=== PATIENT | female | born 1985 | race Caucasian/White ===

== ENCOUNTER → 2016-09-06 | Outpatient (REF) | payer MEDICAID ==
[~2016-09-06] MED LIST: COLA100C3 PO; CYCL10TA PO; HYDR-3713 PO; IBUP600T26 PO; IRON65TA PO; MOTR200T44 PO; PERC5TAB6 PO; PRENTAB55 PO
== END ==
LOC: M LAB REF 16:29
PROVIDERS: ATTEND Physician Assistant
DX: J02.9 Acute pharyngitis, unspecified (principal)

== ENCOUNTER → 2016-10-08 | Outpatient (CLI) | payer MEDICAID, OTHER | LOC: M RAD 16:50 | PROVIDERS: ATTEND Advanced Practice Midwife | DX: Z53.8 Procedure and treatment not carried out for other reasons (principal) ==

== ENCOUNTER → 2016-12-06 | Outpatient (CLI) | payer OTHER ==
[~2016-12-06] MED LIST changes: -COLA100C3 PO; +COLA100C5 PO; +IBUP-1022 PO; -IBUP600T26 PO; +PERC5TAB12 PO; -PERC5TAB6 PO
--- NOTE | 2016-12-06 16:48 | REP ---
Pelvic ultrasound including transabdominal and endovaginal imaging: Prior study dated 04/22/2016 identified a 6 cm unilocular right ovarian cyst. The uterus is anteverted and normal size measuring 8.60 4.7 x 5 point centimeters. The endometrium is not thickened measuring 3.81 meters. The right ovary is normal size measuring 2.9 x 2.7 x 1.6 cm. There is no right ovarian cyst. The previous right ovarian cyst has involuted. The left ovary is normal size measuring 3.0 x 1.5 x 2.5 cm. There is no left ovarian mass or cyst. No free fluid in the pelvis. Impression: Negative pelvic ultrasound. The previous right ovarian cyst has involuted. Signed by Boo Garcia MD 12/06/2016 04:38 P
== END ==
LOC: M RAD 14:56
PROVIDERS: ATTEND Advanced Practice Midwife
DX: R10.30 Lower abdominal pain, unspecified (principal); N85.4 Malposition of uterus

== ENCOUNTER → 2017-04-16 | Outpatient (REF) | payer OTHER | LOC: M SFHCLERA 17:57 | PROVIDERS: ATTEND Physician Assistant | DX: R10.84 Generalized abdominal pain (principal) ==

== ENCOUNTER → 2018-04-03 | Outpatient (REF) | payer OTHER ==
[2018-04-07 14:13] LABS: HPV HYBRID CAPTURE II Negative (Negative)
== END ==
LOC: M LAB REF 17:21
DX: Z12.4 Encounter for screening for malignant neoplasm of cervix (principal)

== ENCOUNTER → 2018-04-23 | Outpatient (REF) | payer OTHER ==
[2018-04-24 14:38] LABS: CHLAMYDIA DNA AMPLIFICATION NEGATIVE (NEGATIVE); GC DNA AMPLIFICATION NEGATIVE (NEGATIVE)
== END ==
LOC: M SFHCLERA 17:30
PROVIDERS: ATTEND Nurse Practitioner Family
DX: R11.10 Vomiting, unspecified (principal)

== ENCOUNTER → 2018-04-30 | Outpatient (REF) | payer OTHER ==
[2018-05-01 12:19] LABS: CHLAMYDIA DNA AMPLIFICATION NEGATIVE (NEGATIVE); GC DNA AMPLIFICATION NEGATIVE (NEGATIVE)
== END ==
LOC: M LAB REF 09:36
PROVIDERS: ATTEND Physician Assistant
DX: N39.0 Urinary tract infection, site not specified (principal)

== ENCOUNTER → 2018-05-13 | Outpatient (REF) | payer OTHER | LOC: M LAB REF 11:44 | PROVIDERS: ATTEND Physician Assistant | DX: R30.0 Dysuria (principal) ==

== ENCOUNTER 2018-05-23 14:03 | Outpatient (RCR) | payer OTHER | END 2018-05-25 | LOC: M PT 14:03 | PROVIDERS: ATTEND Advanced Practice Midwife | DX: N94.10 Unspecified dyspareunia (principal); R68.82 Decreased libido ==

== ENCOUNTER → 2018-06-07 | Outpatient (CLI) | payer OTHER ==
[2018-06-07 15:04] LABS: FREE T4 0.94 NG/DL (0.76-1.46); THYROID STIMULATING HORMONE 0.734 uIU/ML (0.358-3.740)
== END ==
LOC: M LAB 13:48
PROVIDERS: ATTEND Advanced Practice Midwife
DX: R68.82 Decreased libido (principal)

== ENCOUNTER 2018-06-15 14:00 | Outpatient (RCR) | payer OTHER | END 2018-06-22 | LOC: M PT 14:00 | PROVIDERS: ATTEND Advanced Practice Midwife | DX: N94.10 Unspecified dyspareunia (principal); R68.82 Decreased libido ==

== ENCOUNTER → 2018-08-07 | Outpatient (CLI) | payer OTHER ==
[2018-08-07 15:29] LABS: BASO % 0.4 % (0.0-1.0); EOS # 0.1 10^3/uL (0.0-0.50); HEMATOCRIT 34.4 % (36.0-47.0); HEMOGLOBIN 11.7 g/dl (12.0-15.5); LYMPH # 2.1 10^3/uL (1.5-4.5); LYMPH % 21.3 % (24.0-44.0); MEAN CORPUSCULAR HEMOGLOBIN 29.1 pg (27.0-33.0); MEAN CORPUSCULAR VOLUME 85.6 fl (80.0-96.0); MONO # 0.6 10^3/uL (0.0-0.8); MONO % 6.3 % (0.0-5.0); NEUTROPHILS # 6.8 10^3/uL (1.8-7.7); NEUTROPHILS % 70.8 % (36.0-66.0); PLATELET COUNT, AUTOMATED 252 10^3/uL (150-450); RED BLOOD COUNT 4.02 10^6/uL (4.00-5.40); WHITE BLOOD COUNT 9.7 10^3/uL (4.0-10.0)
[2018-08-07 16:49] LABS: HEPATITIS C VIRUS ABY INDEX 0.1 INDEX (<0.8); HIV 1&2 SCREEN CENTAUR NEGATIVE (NEGATIVE); RUBELLA IgG QUALITATIVE IMMUNE (IMMUNE)
[2018-08-07 17:03] LABS: CHLAMYDIA DNA AMPLIFICATION NEGATIVE (NEGATIVE); GC DNA AMPLIFICATION NEGATIVE (NEGATIVE)
== END ==
LOC: M LAB 14:44
PROVIDERS: ATTEND Advanced Practice Midwife
DX: Z3A.08 8 weeks gestation of pregnancy (principal)

== ENCOUNTER → 2018-08-30 | Outpatient (REF) | payer OTHER | LOC: M LAB REF 12:30 | PROVIDERS: ATTEND Physician Assistant | DX: R30.0 Dysuria (principal) ==

== ENCOUNTER → 2018-10-12 | Outpatient (CLI) | payer OTHER ==
--- NOTE | 2018-10-12 15:57 | REP ---
Obstetric ultrasound for anatomy: The there is a single intrauterine gestation in a vertex presentation. There is movement and cardiac activity. The heart rate is 144 beats per minute. The placenta is posterior. There is no placenta previa or abruptio. The placenta is grade 1 maturity. The amniotic fluid volume subjectively is normal. The cervix measures 3.8 cm length. Gestational age by today's ultrasound is 19 weeks 3 days/ISIS 03/05/2019. Gestational age by LMP is 18-week 6 days/ISIS 03/09/2019. weight is 303 grams/0 pounds, 10 ounces. This is the 75th percentile for 18 weeks 6 days. The following anatomic structures are identified and are unremarkable: The cranium, choroid plexus, cavum septum pellucidum, upper lip, diaphragm, stomach, cord insertion, three-vessel cord, kidneys, bladder, spine and upper lower extremities. Suboptimally demonstrated because of position are the facial profile, lungs, four-chamber view of the heart and cardiac right and left ventricular outflow tracts. A followup study dedicated to these structures might be considered. Otherwise, there are no anomalies. Electronically Signed by Boo Garcia MD 10/12/2018 03:48 P
== END ==
LOC: M RAD 14:30
PROVIDERS: ATTEND Obstetrics & Gynecology
DX: Z34.82 Encounter for supervision of other normal pregnancy, second trimester (principal); Z3A.19 19 weeks gestation of pregnancy

== ENCOUNTER → 2018-11-03 | Outpatient (CLI) | payer OTHER ==
--- NOTE | 2018-11-04 06:21 | REP ---
Obstetric sonography: History: Supervision of for anatomy. Follow-up, face, lungs, four-chamber heart and outflow tract views. Findings: Scanning through the gravid uterus demonstrates a viable single intrauterine gestation in a cephalic lie. motion is observed and heart rate is recorded at 156 beats per minute. A posterior grade 1 placenta is seen without evidence of previa or abruption. Amniotic fluid is subjectively normal. Closed cervical length measured transabdominally is 4.1 cm. No extrauterine abnormality is observed. There has been appropriate interval growth. No anomaly is seen. The following anatomic structures are identified and felt to be sonographically unremarkable: cranium, choroid plexus, cavum, cerebellum and posterior fossa, face and profile, lungs, four-chamber heart with left and right ventricular outflow tract views, diaphragm, left-sided stomach, abdominal wall cord insertion, three-vessel umbilical cord, kidneys and bladder, spine, upper and lower extremities. Biometry chart: BPD 4.9 cm 20 weeks 6 days Head circumference 20.3 cm 22 weeks 3 days Abdominal circumference 17.8 cm 22 weeks 5 days Femur length 4.3 cm 24 weeks 0 days Humeral length 4.0 cm 24 weeks 2 days HC/AC ratio normal 1.14. Cephalic index 0.64 (0.70-0.86). Estimated weight 562 grams, 1 pound 3 ounces, 83rd percentile for 22 week 0 days. Impression: Viable single intrauterine gestation at 22 weeks 6 days by today's composite sonographic criteria. Expected gestational age estimate based on prior sonography is 22 weeks 4 days. ISIS by prior sonography March 05, 2019. anatomic survey is felt to be complete. Electronically Signed by José Miguel Moon MD 11/04/2018 11:41 A
== END ==
LOC: M RAD 13:12
PROVIDERS: ATTEND Advanced Practice Midwife
DX: Z34.82 Encounter for supervision of other normal pregnancy, second trimester (principal); Z3A.22 22 weeks gestation of pregnancy

== ENCOUNTER → 2018-11-16 | Outpatient (REF) | payer OTHER | LOC: M LAB REF 16:57 | PROVIDERS: ATTEND Advanced Practice Midwife | DX: Z34.82 Encounter for supervision of other normal pregnancy, second trimester (principal) ==

== ENCOUNTER → 2018-12-01 | Outpatient (CLI) | payer OTHER ==
[2018-12-01 10:23] LABS: HEMATOCRIT 29.7 % (36.0-47.0); MEAN CORPUSCULAR HEMOGLOBIN 29.8 pg (27.0-33.0); MEAN CORPUSCULAR HGB CONC 33.7 g/dl (32.0-36.5); MEAN CORPUSCULAR VOLUME 88.4 fl (80.0-96.0); PLATELET COUNT, AUTOMATED 177 10^3/uL (150-450); RED BLOOD COUNT 3.36 10^6/uL (4.00-5.40); WHITE BLOOD COUNT 10.3 10^3/uL (4.0-10.0)
== END ==
LOC: M LAB 08:19
PROVIDERS: ATTEND Advanced Practice Midwife
DX: Z34.82 Encounter for supervision of other normal pregnancy, second trimester (principal)

== ENCOUNTER 2019-01-10 09:14 | Outpatient (CLI) | payer OTHER ==
[~2019-01-10] VITALS: Ht 175.3 cm; Wt 92.0 kg
[2019-01-10] MEDS ORDERED: LACTATED RINGER'S 1000 ML IV ONE (11:00)
[2019-01-10 11:31] LABS: HEMOGLOBIN 11.1 g/dl (12.0-15.5); MEAN CORPUSCULAR HEMOGLOBIN 30.1 pg (27.0-33.0); MEAN CORPUSCULAR HGB CONC 33.6 g/dl (32.0-36.5); MEAN CORPUSCULAR VOLUME 89.4 fl (80.0-96.0); PLATELET COUNT, AUTOMATED 143 10^3/uL (150-450); RED BLOOD COUNT 3.69 10^6/uL (4.00-5.40); WHITE BLOOD COUNT 10.6 10^3/uL (4.0-10.0)
[2019-01-10] MEDS ORDERED: LR 1,000 ML IV SCH (12:00)
[2019-01-10 12:10] LABS: ALBUMIN 2.8 GM/DL (3.2-5.2); ALT/SGPT 11 U/L (12-78); AMYLASE 36 U/L (25-115); BILIRUBIN,DIRECT 0.2 MG/DL (0.0-0.2); BILIRUBIN,TOTAL 0.4 MG/DL (0.2-1.0); BLOOD UREA NITROGEN 5 MG/DL (7-18); CALCIUM LEVEL 8.8 MG/DL (8.5-10.1); CARBON DIOXIDE LEVEL 22 MEQ/L (21-32); CHLORIDE LEVEL 107 MEQ/L (98-107); CREATININE FOR GFR 0.56 MG/DL (0.55-1.30); GLOMERULAR FILTRATION RATE > 60.0 (>60); GLUCOSE, FASTING 85 MG/DL (70-100); LIPASE 84 U/L (73-393); POTASSIUM SERUM 3.9 MEQ/L (3.5-5.1); SODIUM LEVEL 138 MEQ/L (136-145); TOTAL PROTEIN 6.8 GM/DL (6.4-8.2)
--- NOTE | 2019-01-10 12:20 | IPN ---
DATE: 01/10/2019 Karley is a 33-year-old, 4, para 2-0-1-2, at 32-1/7 weeks gestation, expected date of confinement (EDC) of 03/06/2019 based on last menstrual period and confirmed by first trimester ultrasound. She presents to labor and delivery today due to abdominal pain in the upper quadrants. The pain initially started last evening around 1800 and progressively became more uncomfortable over the night. She was able to sleep for a couple hours and arose this morning with increase in abdominal pain. She reports that it does not feel like contractions. She denies vaginal bleeding or leakage of fluid. The fetus has been active. She also reports that she had back pain throughout the day yesterday, but that went away prior to her abdominal pain starting. She had last eaten last evening prior to the pain starting, [employer] barbecue fried chicken sandwich. She has been able to keep clear fluids down. She does deny vomiting and diarrhea. Her care was initiated at [facility] in the first trimester with her course complicated by a prior section times two at term. OBSTETRICAL HISTORY: February 2004: 40 weeks gestation, 8 pounds 12 ounces male, following a section. 2012: Spontaneous miscarriage. November 2015: 38 weeks gestation, 8 pounds 5 ounces male, following an emergent section for spontaneous rupture of membranes and a presentation with bradycardia, question of a possible placental abruption. Pathology was normal. OBSTETRIC LABS: A negative. Antibody screen negative. Pap normal. Rubella immune. VDRL nonreactive. Hepatitis B surface antigen negative. HIV negative. Hepatitis C antibody nonreactive. Gonorrhea and chlamydia negative. She did decline genetic serum screening labs. Gestational diabetic screening normal at 118. Her GBS is unknown at this time. PAST MEDICAL HISTORY: Childhood varicella. SURGERIES: section times two. FAMILY HISTORY: Diabetes and heart disease. SOCIAL HISTORY: The patient is single, however, there is a father of the baby involved. She does present alone for evaluation today. She is a nonsmoker. She denies alcohol and drug use. She denies history of sexually transmitted infections. She denies history of abuse - physical, sexual and emotional. ALLERGIES: No known drug allergies. CURRENT MEDICATIONS: - omeprazole - ferrous gluconate - stool softener - vitamin OBJECTIVE: Temperature 97, pulse 96, respirations 22, blood pressure (BP) is 128/59. She does appear moderately uncomfortable. The heart rate is 150, moderate variability, positive accelerations, no decelerations. Contractions are every 2-5 minutes. They are mild, approximately 30-40 seconds long. Sterile Vaginal Exam: She is closed, thinning, ballottable. Her abdomen is tender to palpation in the upper quadrants. Her uterus is nontender to palpation. ASSESSMENT: Intrauterine at 32-1/7 weeks. heart rate is category one. Upper abdominal pain, rule out cholelithiasis, pancreatitis. PLAN: Per consult with Dr. Sherri Park, IV fluids. Labs to include CBC, CMP, amylase, lipase and liver profile. Gallbladder ultrasound stat. Nothing by mouth (n.p.o.) diet at this time. Will continue to observe and await laboratory results and sono results.
--- NOTE | 2019-01-10 12:51 | REP ---
RIGHT UPPER QUADRANT ULTRASOUND: Real-time sonographic evaluation of the right upper quadrant performed. Gallstones are seen in the gallbladder. There is no gallbladder wall thickening or free fluid. There is no intrahepatic or extrahepatic biliary dilatation, common bile duct measuring 3 mm. Liver demonstrates no gross abnormality. Pancreas could not be seen due to overlying bowel gas. Right kidney demonstrates mild hydronephrosis with normal size 12.3 cm in length. The patient is and heart rate is noted to be 160 beats per minute. Study is limited due to patient body habitus and inability to suspend respirations. IMPRESSION: Gallstones in the gallbladder without evidence of gallbladder wall thickening, free fluid or biliary dilatation. Mild right hydronephrosis. Electronically Signed by Boo Irene MD 01/11/2019 04:43 P
[2019-01-10] MEDS ORDERED: PROMETHAZINE INJ 25 MG/ML VIAL (J2550) IV ONE (13:30)
[2019-01-10] MEDS ORDERED: BUTORPHANOL 2 MG/ML INJ (J0595) IV ONE (13:30)
== END 2019-01-10 16:30 | disposition home or self-care (01) ==
LOC: M LDO 09:14
PROVIDERS: ATTEND Advanced Practice Midwife
DX: O99.89 Other specified diseases and conditions complicating pregnancy, childbirth and the puerperium (principal); Z3A.32 32 weeks gestation of pregnancy; R10.10 Upper abdominal pain, unspecified; N13.30 Unspecified hydronephrosis; K80.20 Calculus of gallbladder without cholecystitis without obstruction
CPT/HCPCS: 59025; 76705; 80053; 82150; 82248; 83690; 85027; 96374; 96375; J0595

== ENCOUNTER → 2019-01-15 | Outpatient (CLI) | payer OTHER ==
[2019-01-15 16:06] LABS: ALBUMIN 2.7 GM/DL (3.2-5.2); ALT/SGPT 17 U/L (12-78); AMYLASE 36 U/L (25-115); BILIRUBIN,TOTAL 0.5 MG/DL (0.2-1.0); BLOOD UREA NITROGEN 7 MG/DL (7-18); CALCIUM LEVEL 8.3 MG/DL (8.5-10.1); CARBON DIOXIDE LEVEL 22 MEQ/L (21-32); CHLORIDE LEVEL 106 MEQ/L (98-107); CREATININE FOR GFR 0.74 MG/DL (0.55-1.30); GLOMERULAR FILTRATION RATE > 60.0 (>60); GLUCOSE, FASTING 90 MG/DL (70-100); LIPASE 107 U/L (73-393); POTASSIUM SERUM 3.7 MEQ/L (3.5-5.1); SODIUM LEVEL 138 MEQ/L (136-145); TOTAL PROTEIN 6.5 GM/DL (6.4-8.2)
== END ==
LOC: M LAB 15:12
PROVIDERS: ATTEND Advanced Practice Midwife
DX: K80.80 Other cholelithiasis without obstruction (principal)

== ENCOUNTER → 2019-02-09 | Outpatient (REF) | payer OTHER | LOC: M LAB REF 16:57 | PROVIDERS: ATTEND Advanced Practice Midwife | DX: Z36.85 Encounter for antenatal screening for Streptococcus B (principal); O99.613 Diseases of the digestive system complicating pregnancy, third trimester ==

== ENCOUNTER → 2019-02-16 | Outpatient (CLI) | payer OTHER ==
[~2019-02-16] MED LIST changes: +ACET1TAB55 PO; +OMEP-218 PO
== END ==
LOC: M LAB 11:52
PROVIDERS: ATTEND Advanced Practice Midwife
DX: O99.613 Diseases of the digestive system complicating pregnancy, third trimester (principal); Z3A.00 Weeks of gestation of pregnancy not specified

== ENCOUNTER 2019-02-22 14:18 | Outpatient (CLI) | payer OTHER ==
[~2019-02-22] VITALS: Ht 175.3 cm; Wt 96.7 kg
[~2019-02-22 14:18] MED LIST changes: -ACET1TAB55 PO; -OMEP-218 PO
[2019-02-22 14:34] VITALS: BP 106/59
[2019-02-22] MEDS ORDERED: ACET1TAB55 PO (14:39)
[2019-02-22] MEDS ORDERED: OMEP-218 PO (14:39)
[2019-02-22 15:44] VITALS: BP 112/59
== END 2019-02-22 15:57 | disposition home or self-care (01) ==
LOC: M LDO 14:18
PROVIDERS: ATTEND Obstetrics & Gynecology
DX: O47.1 False labor at or after 37 completed weeks of gestation (principal); Z3A.38 38 weeks gestation of pregnancy

== ENCOUNTER 2019-02-27 02:41 | Inpatient (IN) | payer OTHER ==
[2019-02-27] VITALS (9 sets, daily range): BP systolic 111–122; BP diastolic 55–80
[~2019-02-27] VITALS: Ht 175.3 cm; Wt 97.2 kg
[~2019-02-27 02:41] MED LIST changes: +ACET1TAB55 PO; +OMEP-218 PO
[2019-02-27] MEDS ORDERED: LR 1,000 ML IV ONE ×2 (02:45→03:30)
[2019-02-27 03:19] LABS: HEMATOCRIT 33.4 % (36.0-47.0); HEMOGLOBIN 11.1 g/dl (12.0-15.5); MEAN CORPUSCULAR HEMOGLOBIN 29.2 pg (27.0-33.0); MEAN CORPUSCULAR HGB CONC 33.2 g/dl (32.0-36.5); MEAN CORPUSCULAR VOLUME 87.9 fl (80.0-96.0); PLATELET COUNT, AUTOMATED 148 10^3/uL (150-450); WHITE BLOOD COUNT 9.9 10^3/uL (4.0-10.0)
[2019-02-27] MEDS ORDERED: ceFAZolin SOD 2 GM in IV 1 EA IV ONE (03:30)
[2019-02-27] MEDS ORDERED: BICITRA 30ML SOLN UDC PO ONE (03:30)
[2019-02-27] MEDS ORDERED: LR 1,000 ML IV SCH (03:30)
[2019-02-27] MEDS ORDERED: BUTORPHANOL 2 MG/ML INJ (J0595) IV ONE (04:00)
[2019-02-27] MEDS ORDERED: PROMETHAZINE INJ 25 MG/ML VIAL (J2550) IV ONE (04:00)
--- NOTE | 2019-02-27 04:58 | IPNPDOC ---
Obstetrical Progress Note Date of Service Feb 27, 2019 Subjective Patient reports she started having contractions at 11-12 last night and they have gotten closer together and more painful. She reports that her contractions are an 8-9/10 pain. Objective Vital Signs Date Time Temp Pulse Resp B/P (MAP) Pulse Ox O2 Delivery O2 Flow Rate FiO2 02/27/19 04:37 171 18 116/70 (85) 02/27/19 03:14 97.9 Assessment Heart Rate (FHR): 130 Variability: Moderate Accelerations: Positive Decelerations: None Heart Rate Tracing: Category I Tocometer Contractions: Yes Frequency: regular, other (2-6 minutes) Sterile Vaginal Examination Dilation: Fingertip Effacement (%): 50% Cervical Consistency: Soft Cervical Position: Anterior Assessment and Plan EGA at Admission: 39 Status: Reassuring Anticipate: Section Additional Comments Patient is flushed and breathing through contractions. Dr. Savage notified. May give IV pain medication until he arrives to do her repeat section as patient desires something for pain at this time. CASEY PRIEST CNM Feb 27, 2019 04:58
[2019-02-27] MEDS ORDERED: METOCLOPRAMIDE INJ 10MG/2ML VIAL (J2765) IV PRN (05:18)
[2019-02-27] MEDS ORDERED: ONDANSETRON 4MG/2ML VIAL (J2405) IV PRN ×3 (05:18→07:00)
[2019-02-27] MEDS ORDERED: diphenhydrAMINE INJ 50MG/ML VIAL (J1200) IV PRN (05:18)
[2019-02-27] MEDS ORDERED: NALBUPHINE HCL 10 MG/ML AMP (J2300) IV PRN ×2 (05:18→07:00)
[2019-02-27] MEDS ORDERED: NALOXONE INJ 0.4 MG/1 ML VIAL (J2310) IV PRN ×2 (05:18)
[2019-02-27] MEDS ORDERED: MORPHINE PRES-FREE INJ 10 MG/10 ML VIAL (J2274) As Ordered ONE (05:28)
[2019-02-27] MEDS ORDERED: OXYTOCIN INJ 10 UNITS/ML VIAL (J2590) As Ordered ONE (05:28)
[2019-02-27] MEDS ORDERED: PHENYLephrine HCL 500 MCG/5 ML (100MCG/ML) SYRINGE (J2370) As Ordered ONE (05:30)
[2019-02-27] MEDS ORDERED: MIDAZOLAM INJ 2 MG/2 ML VIAL (J2250) As Ordered ONE (05:49)
[2019-02-27] MEDS ORDERED: AZITHROMYCIN INJ 500 MG, VIAL MATE ADAPTER 1 EACH in D5W 250 ML IV ONE ×6 (06:15)
[2019-02-27] MEDS ORDERED: OXYTOCIN DRIP 30 UNITS in IV 1 EA IV SCH (06:31)
[2019-02-27] MEDS ORDERED: RHOGAM 300 MCG (1500 IU) INJ (J2790) IM SCH (06:45)
[2019-02-27] MEDS ORDERED: PERCOCET 5MG/325MG TAB PO PRN (06:45)
[2019-02-27] MEDS ORDERED: PROMETHAZINE 25 MG TAB PO PRN (06:45)
[2019-02-27] MEDS ORDERED: MEASLES,MUMPS,RUBELLA VACCINE INJ (MMR-II) (90707) SC SCH (06:45)
[2019-02-27] MEDS ORDERED: ACETAMINOPHEN 500 MG TAB PO PRN (06:45)
[2019-02-27] MEDS ORDERED: KETOROLAC 30 MG/ML VIAL (J1885) IV PRN (07:00)
[2019-02-27] MEDS ORDERED: MEPERIDINE INJ 25 MG/ML VIAL (J2175) IV PRN (07:00)
[2019-02-27] MEDS ORDERED: fentaNYL 100 MCG/2 ML INJECTION (J3010) IV PRN (07:00)
[2019-02-27] MEDS ORDERED: KETOROLAC 30 MG/ML VIAL (J1885) As Ordered ONE (07:06)
[2019-02-27] MEDS: KETOROLAC 30 MG/ML VIAL (J1885) IV SCH ×3 (07:09→18:02)
[2019-02-27] MEDS ORDERED: OXYTOCIN 30 UNITS IN 0.9% NaCl 500ML IV BAG (J2590) As Ordered ONE (07:16)
[2019-02-27] MEDS: LR 1,000 ML IV SCH ×3 (08:05→22:31)
[2019-02-27] MEDS: DOCUSATE SODIUM 100 MG CAP PO SCH ×2 (09:04→22:16)
[2019-02-27] MEDS: PRENATAL VITAMINS CHEWABLE TABLET PO SCH (09:04)
[2019-02-28 02:30] VITALS: BP 134/72
[2019-02-28] MEDS: IBUPROFEN 800 MG TAB PO SCH ×2 (03:20→10:56)
[2019-02-28] MEDS: NORCO, ANEXSIA 5/325MG TABLET (HYDROcodone/ACETAMINOPHEN) PO PRN ×2 (06:21→11:47)
[2019-02-28 07:10] VITALS: BP 104/61
[2019-02-28] MEDS ORDERED: IBUP80TA PO (07:31)
[2019-02-28] MEDS ORDERED: HYDR-4571 PO (07:31)
[2019-02-28 07:47] LABS: HEMATOCRIT 31.6 % (36.0-47.0); HEMOGLOBIN 10.3 g/dl (12.0-15.5); MEAN CORPUSCULAR HEMOGLOBIN 29.3 pg (27.0-33.0); MEAN CORPUSCULAR HGB CONC 32.6 g/dl (32.0-36.5); PLATELET COUNT, AUTOMATED 130 10^3/uL (150-450); RED BLOOD COUNT 3.51 10^6/uL (4.00-5.40); WHITE BLOOD COUNT 9.8 10^3/uL (4.0-10.0)
[2019-02-28] MEDS: PRENATAL VITAMINS CHEWABLE TABLET PO SCH (09:00)
[2019-02-28] MEDS: DOCUSATE SODIUM 100 MG CAP PO SCH (09:00)
[2019-02-28 10:00] VITALS: BP 115/66
--- NOTE | 2019-02-28 12:51 | DSES ---
DATE OF ADMISSION: 02/27/2019 DATE OF DISCHARGE: 02/28/19 DISCHARGE DIAGNOSIS: Repeat section, 39+ weeks active labor. SURGEON: Myron Savage DO AIRCRAFT MAINTENANCE SUPERVISOR: Mallory Mejía, certified nurse labor supervisor HISTORY: Karley is a 33-year-old 4, para 3-0-1-3 now, who was admitted to labor and delivery and underwent a planned repeat section due to active labor. Her surgery was uncomplicated. She had a 700 mL estimated blood loss. Delivered a female infant weighing 8 pounds 15 ounces, 4050 grams, scores 8 and 8. She reports that she has been out of bed for self care, lola care, and infant care. She is tolerating by mouth fluids and a regular diet. She is voiding without difficulty. Her pain has been well controlled with by mouth Vicodin and ibuprofen. She does deny passing flatus at this time. She does insist on early discharge to home. Her has been discharged. OBJECTIVE: Temperature 98.1, pulse 95, respirations 18, blood pressure (BP) is 115/66, 98% on room air for her oxygen (O2). She is alert and oriented times three. She does not appear uncomfortable. Her preoperative complete blood count (CBC) with a hemoglobin of 11.1, hematocrit 33.4, and platelet 148. Postoperative CBC: Hemoglobin 10.3, hematocrit 31.6, and platelet 130. Her breasts are soft and nontender. Her incision has the dressing dry and intact. There is no new drainage noted. Her perineum is intact. Lochia rubra scant. Bilateral lower extremities with +1 pitting edema. PLAN: Discharge the patient home. She is to followup at [facility] for a 2-week incision check and an 8-week appointment. Pain medications have been E-prescribed by Dr. Myron Savage to her pharmacy for Vicodin as needed. I did review discharge instructions that include breast care, incision care, lola care, pelvic rest, activity and lifting restrictions, access to care, and other danger signs to report. I did review risks, benefits, and alternatives to early discharge. The patient still requests early discharge to home. JOSE
== END 2019-02-28 13:55 | disposition home or self-care (01) | DRG 540 ==
LOC: M LDI 02:41 → M OBS 08:57
PROVIDERS: ADMIT Obstetrics & Gynecology; ATTEND Obstetrics & Gynecology
PROC: 10D00Z1 Extraction of Products of Conception, Low, Open Approach (ICD-10-PCS; principal; 2019-02-27 09:30)
DX: O34.211 Maternal care for low transverse scar from previous cesarean delivery (principal); Z3A.39 39 weeks gestation of pregnancy; O75.82 Onset (spontaneous) of labor after 37 completed weeks of gestation but before 39 completed weeks gestation, with delivery by (planned) cesarean section; Z37.0 Single live birth

== ENCOUNTER → 2019-03-07 | Outpatient (REF) | payer OTHER ==
[~2019-03-07] MED LIST changes: +HYDR-4571 PO; +IBUP80TA PO
== END ==
LOC: M LAB REF 13:44
PROVIDERS: ATTEND Advanced Practice Midwife
DX: R30.0 Dysuria (principal)

== ENCOUNTER 2019-03-17 11:06 | Emergency (ER) | payer OTHER ==
[~2019-03-17] VITALS: Ht 175.3 cm; Wt 86.4 kg
[2019-03-17] MEDS ORDERED: ONDANSETRON 4MG/2ML VIAL (J2405) IV ONE (11:30)
[2019-03-17] MEDS ORDERED: NS 1,000 ML IV ONE (11:30)
[2019-03-17] MEDS ORDERED: KETOROLAC 30 MG/ML VIAL (J1885) IV ONE (11:30)
[2019-03-17 11:46] LABS: BASO # 0.1 10^3/uL (0.0-0.2); BASO % 0.8 % (0.0-1.0); EOS # 0.1 10^3/uL (0.0-0.5); EOS % 1.9 % (0.0-3.0); HEMATOCRIT 44.3 % (36.0-47.0); HEMOGLOBIN 14.5 g/dl (12.0-15.5); LYMPH # 1.5 10^3/uL (1.5-5.0); LYMPH % 25.8 % (24.0-44.0); MEAN CORPUSCULAR HEMOGLOBIN 29.1 pg (27.0-33.0); MEAN CORPUSCULAR HGB CONC 32.7 g/dl (32.0-36.5); MEAN CORPUSCULAR VOLUME 88.8 fl (80.0-96.0); MONO # 0.4 10^3/uL (0.0-0.8); MONO % 7.4 % (0.0-5.0); NEUTROPHILS # 3.8 10^3/uL (1.5-8.5); NEUTROPHILS % 63.9 % (36.0-66.0); PLATELET COUNT, AUTOMATED 248 10^3/uL (150-450); RED BLOOD COUNT 4.99 10^6/uL (4.00-5.40); WHITE BLOOD COUNT 5.9 10^3/uL (4.0-10.0)
[2019-03-17 12:16] LABS: ALBUMIN 3.8 GM/DL (3.2-5.2); ALT/SGPT 93 U/L (12-78); BILIRUBIN,DIRECT 0.4 MG/DL (0.0-0.2); BILIRUBIN,TOTAL 0.8 MG/DL (0.2-1.0); BLOOD UREA NITROGEN 9 MG/DL (7-18); CALCIUM LEVEL 9.2 MG/DL (8.5-10.1); CARBON DIOXIDE LEVEL 30 MEQ/L (21-32); CHLORIDE LEVEL 106 MEQ/L (98-107); CK-MB VALUE MASS < 1.0 NG/ML (<3.6); CPK CREATINE PHOSPHOKINASE 96 U/L (26-192); CREATININE FOR GFR 0.85 MG/DL (0.55-1.30); GLOMERULAR FILTRATION RATE > 60.0 (>60); GLUCOSE, FASTING 81 MG/DL (70-100); LIPASE 163 U/L (73-393); MB/CK RELATIVE INDEX 1.04 (< OR =4); POTASSIUM SERUM 3.7 MEQ/L (3.5-5.1); SODIUM LEVEL 141 MEQ/L (136-145); TOTAL PROTEIN 8.5 GM/DL (6.4-8.2); TROPONIN I < 0.02 NG/ML (< 0.10)
--- NOTE | 2019-03-17 12:33 | REP ---
REASON: Abdominal pain. COMPARISON: 05/06/2013 FINDINGS: The superior mediastinal structures are midline. The cardiac silhouette is unremarkable in size, shape, and position. The diaphragmatic surfaces of the lungs are regular, and the costophrenic angles are clear. The pulmonary welch are clear. The imaged osseous structures are intact. IMPRESSION: There is no acute cardiopulmonary disease. No change from the prior exam. Electronically Signed by Connor Hammonds DO 03/17/2019 01:28 P
[2019-03-17] MEDS ORDERED: METAL LOCK LOOP XX ONE (12:55)
--- NOTE | 2019-03-17 13:11 | ECGEPIP ---
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
--- NOTE | 2019-03-17 13:35 | REP ---
HISTORY: Right upper quadrant pain. History of cholelithiasis. COMPARISON: 01/10/2019 Note is again made of cholelithiasis, status quo. There is no change in the gallbladder wall. The common bile duct is not dilated and is unchanged. It measures 3 mm. There is no abnormality seen involving the liver, pancreas, or right kidney. IMPRESSION: No change from the prior exam. There is cholelithiasis. Electronically Signed by Connor Hammonds DO 03/17/2019 02:47 P
[2019-03-17 16:46] VITALS: BP 122/71
--- NOTE | 2019-03-17 17:20 | CR ---
DATE OF CONSULTATION: 03/17/2019 REASON FOR CONSULTATION: Cholelithiasis and abdominal pain. HISTORY OF PRESENT ILLNESS: The patient reports that about 3 years ago during a previous , she had some abdominal discomfort and underwent evaluation with an ultrasound, which confirmed cholelithiasis. Once her had completed, she had no further issues with gallstone problems and did not have any further treatment. The patient was recently again. She had an episode of left-sided abdominal pain, for which she underwent a gallbladder ultrasound, which confirmed cholelithiasis. This was in December. The patient continued through her and delivered by section on February 27. The patient reports that last evening, March 16, at approximately 10 p.m. she noted the onset of severe right upper quadrant pain, which radiated around to her back. She developed some nausea and vomiting. The patient reports that she was able to go to sleep and awakened this morning, had some apple juice and half a Pop Tart, and noted recurrence of the pain again. The pain persisted, and she presented to the emergency department at approximately 11 o'clock this morning for evaluation. The patient denies any history of hepatitis, pancreatitis, or yellow jaundice. She has not noticed any darkening of her urine. She is currently feeling better since coming to the emergency department. Her only pain medication was a dose of Toradol at approximately 11:43 this morning. She was evaluated with a gallbladder ultrasound and some lab work. Her gallstones were again confirmed. I was asked to evaluate the patient regarding treatment. ALLERGIES. The patient reports no known drug allergies. MEDICATIONS: The patient reports she is on no routine scheduled medications. SURGICAL HISTORY: Significant for three sections, most recently on February 27. MEDICAL HISTORY: Negative. SOCIAL HISTORY: The patient has three children, the most recent born 2 weeks ago. She is bottle-feeding the baby. FAMILY HISTORY: Noncontributory. REVIEW OF SYSTEMS: Reveals no history of heart, lung, or endocrine issues. She has not had any recent pains until last night. She has no history of deep vein thrombosis (DVT) or pulmonary embolus. There are no bone or joint issues. She denies any urinary symptoms. She had some nausea and vomiting with her pain today but no diarrhea. PHYSICAL EXAMINATION: Reveals a pleasant young woman, lying quietly on the emergency room (ER) stretcher. She is alert, oriented, and cooperative. Skin is warm and dry. Sclerae are anicteric. Mucous membranes are moist. Neck is supple without mass. Heart exam reveals a regular rate and rhythm. The lungs are clear to auscultation bilaterally. The abdomen is flat. She has a healed low transverse incision, consistent with a section. She has bowel sounds present in all four quadrants. She has no tympany to percussion and no tenderness to percussion. The abdomen is soft throughout without appreciable tenderness. Lower extremities are without edema, and she has palpable radial and pedal pulses. Her laboratory studies include a CBC, showing a white count of 6, hemoglobin of 14, hematocrit of 44, and platelet count of 248,000. Differential count shows 64% neutrophils, 26% lymphocytes, and 7% monocytes. Her chemistry profile shows normal electrolytes, BUN, creatinine, and glucose. She has very slight elevations of her direct bilirubin is 0.4, her AST at 130, her ALT at 93, and her alkaline phosphatase at 187. Total bilirubin was normal at 0.8. Lipase is normal at 163. Urinalysis shows no significant evidence for a urinary tract infection. She had a chest x-ray that showed no evidence of cardiopulmonary disease. The gallbladder ultrasound was interpreted as showing cholelithiasis with no significant change from December 2018. IMPRESSION: The patient has had some right upper quadrant pain, which seems now to have resolved. She has known gallstones, which have been present for perhaps 3 years plus. This may represent a simple attack of biliary colic, although with her very slight elevations of her liver functions, it could be that she passed a common bile duct stone. She has no pain currently, but it is uncertain if she could still have a persistent common bile duct stone. PLAN: I discussed with the patient that I do believe her pain is from her gallstones, but it is unclear if this represented an attack of biliary colic or could be from a common bile duct stone being passed. At this point, she is feeling comfortable and does not appear to need emergent surgery for this issue. I have recommended that we discharge her home. I advised her to avoid particularly greasy foods. I did elder counselor her that she may have a recurrence of her pain, and, if this is severe enough, she should return to the emergency department and we will address this as needed. If she feels well, however, and is able to tolerate a diet, she should follow up with me in my office, and we will schedule an elective cholecystectomy at a scheduled time in the future. The patient appears to understand this plan and these instructions, and I would recommend that she be discharged home.
== END 2019-03-17 16:51 | disposition home or self-care (01) ==
LOC: M ED 11:06
DX: K80.70 Calculus of gallbladder and bile duct without cholecystitis without obstruction (principal); R94.5 Abnormal results of liver function studies; I49.9 Cardiac arrhythmia, unspecified; Z87.19 Personal history of other diseases of the digestive system; Z83.79 Family history of other diseases of the digestive system
CPT/HCPCS: 71046; 76705; 80048; 80076; 81001; 82550; 82553; 83690; 84702; 85025; 87086; 93005; 96374; 99284; J1885; J2405

== ENCOUNTER 2019-03-31 00:03 | Emergency (ER) | payer OTHER ==
[~2019-03-31] VITALS: Ht 175.3 cm; Wt 86.2 kg
[2019-03-31] MEDS ORDERED: MORPHINE 4 MG/ML 1ML VIAL/SYRINGE (J2270) IV ONE (00:30)
[2019-03-31] MEDS ORDERED: NS 1,000 ML IV ONE (00:30)
[2019-03-31] MEDS ORDERED: ONDANSETRON 4MG/2ML VIAL (J2405) IV ONE (00:30)
[2019-03-31 00:37] LABS: BASO % 0.4 % (0.0-1.0); EOS # 0.2 10^3/uL (0.0-0.5); EOS % 1.6 % (0.0-3.0); HEMATOCRIT 37.3 % (36.0-47.0); HEMOGLOBIN 12.3 g/dl (12.0-15.5); LYMPH % 18.8 % (24.0-44.0); MEAN CORPUSCULAR HEMOGLOBIN 28.8 pg (27.0-33.0); MEAN CORPUSCULAR VOLUME 87.4 fl (80.0-96.0); MONO # 0.7 10^3/uL (0.0-0.8); MONO % 6.6 % (0.0-5.0); NEUTROPHILS # 7.7 10^3/uL (1.5-8.5); NEUTROPHILS % 72.1 % (36.0-66.0); PLATELET COUNT, AUTOMATED 130 10^3/uL (150-450); RED BLOOD COUNT 4.27 10^6/uL (4.00-5.40); WHITE BLOOD COUNT 10.6 10^3/uL (4.0-10.0)
[2019-03-31 01:05] LABS: ALBUMIN 3.7 GM/DL (3.2-5.2); ALT/SGPT 58 U/L (12-78); BILIRUBIN,DIRECT 0.3 MG/DL (0.0-0.2); BILIRUBIN,TOTAL 0.5 MG/DL (0.2-1.0); BLOOD UREA NITROGEN 10 MG/DL (7-18); CALCIUM LEVEL 8.4 MG/DL (8.5-10.1); CARBON DIOXIDE LEVEL 29 MEQ/L (21-32); CHLORIDE LEVEL 107 MEQ/L (98-107); CREATININE FOR GFR 0.94 MG/DL (0.55-1.30); GLOMERULAR FILTRATION RATE > 60.0 (>60); GLUCOSE, FASTING 91 MG/DL (70-100); LIPASE 170 U/L (73-393); POTASSIUM SERUM 4.1 MEQ/L (3.5-5.1); SODIUM LEVEL 141 MEQ/L (136-145); TOTAL PROTEIN 7.1 GM/DL (6.4-8.2)
[2019-03-31] MEDS ORDERED: METAL LOCK LOOP XX ONE (01:06)
[2019-03-31 01:07] LABS: APPEARANCE, URINE HAZY (CLEAR); BACTERIA, URINE AUTO 1+ (NEGATIVE); BILIRUBIN, URINE AUTO NEGATIVE (NEGATIVE); BLOOD, URINE BLOOD NEGATIVE (NEGATIVE); COLOR, URINE YELLOW (YELLOW); GLUCOSE, URINE (UA) AUTO NEGATIVE (NEGATIVE); KETONE, URINE AUTO NEGATIVE (NEGATIVE); LEUKOCYTE ESTERASE, URINE AUTO NEGATIVE (NEGATIVE); MUCUS, URINE SMALL (NEGATIVE); NITRITE, URINE AUTO NEGATIVE (NEGATIVE); PROTEIN, URINE AUTO NEGATIVE (NEGATIVE); RBC, URINE AUTO 1 /HPF (0-3); SPECIFIC GRAVITY URINE AUTO 1.024 (1.002-1.035); SQUAMOUS EPITHELIAL CELL UR AU 11 /HPF (0-6); UROBILINOGEN, URINE AUTO 0.2 mg/dL (0.0-2.0); WBC, URINE AUTO 2 /HPF (0-3)
--- NOTE | 2019-03-31 01:38 | REPVR ---
PROCEDURE INFORMATION: Exam: US Abdomen Limited, Right Upper Quadrant Exam date and time: 03/31/2019 12:48 AM Age: 33 years old Clinical history: Abdominal pain; Epigastric; Additional info: Ruq pain HX of gallstones TECHNIQUE: Imaging protocol: Real-time ultrasound of the abdomen with image documentation. Examination was focused on the right upper quadrant. COMPARISON: GALLBLADDER US 03/17/2019 12:53 PM FINDINGS: Liver: Normal. No masses. Gallbladder: Tiny stones or mild sludge in the gallbladder. No gallbladder wall thickening or pericholecystic fluid. Sonographic Yin's sign is negative. Common bile duct: Normal. No stones. No dilation. Pancreas: Visualized pancreas is unremarkable. Right kidney: Normal. No mass. No hydronephrosis. IMPRESSION: Mild gallbladder sludge or small stones. No signs of cholecystitis or biliary duct dilation. Electronically signed by: Raza Lawrence On 03/31/2019 01:37:38 AM
[2019-03-31] MEDS ORDERED: NORC1TAB7 PO (01:46)
[2019-03-31 02:01] VITALS: BP 114/59
[2019-04-01] MEDS ORDERED: HYDR-3713 PO (18:05)
== END 2019-03-31 02:02 | disposition home or self-care (01) ==
LOC: M ED 00:03
DX: K80.50 Calculus of bile duct without cholangitis or cholecystitis without obstruction (principal); K80.20 Calculus of gallbladder without cholecystitis without obstruction
CPT/HCPCS: 36415; 76705; 80048; 80076; 81001; 83690; 85025; 96361; 96374; 96375; 99284; J2270; J2405

== ENCOUNTER 2019-04-01 15:14 | Emergency (ER) | payer OTHER ==
[~2019-04-01] VITALS: Ht 175.3 cm; Wt 85.9 kg
[~2019-04-01 15:14] MED LIST changes: +NORC1TAB7 PO
[2019-04-01] MEDS ORDERED: ONDANSETRON 4MG/2ML VIAL (J2405) IV ONE (15:30)
[2019-04-01] MEDS ORDERED: NS 1,000 ML IV ONE (15:30)
[2019-04-01] MEDS ORDERED: KETOROLAC 30 MG/ML VIAL (J1885) IV ONE (15:30)
[2019-04-01] MEDS ORDERED: MORPHINE 4 MG/ML 1ML VIAL/SYRINGE (J2270) IV PRN (15:30)
[2019-04-01 16:16] LABS: BASO % 0.6 % (0.0-1.0); EOS # 0.2 10^3/uL (0.0-0.5); EOS % 2.8 % (0.0-3.0); HEMATOCRIT 38.9 % (36.0-47.0); HEMOGLOBIN 12.7 g/dl (12.0-15.5); LYMPH # 1.5 10^3/uL (1.5-5.0); LYMPH % 23.7 % (24.0-44.0); MEAN CORPUSCULAR HEMOGLOBIN 28.6 pg (27.0-33.0); MEAN CORPUSCULAR HGB CONC 32.6 g/dl (32.0-36.5); MEAN CORPUSCULAR VOLUME 87.6 fl (80.0-96.0); MONO # 0.4 10^3/uL (0.0-0.8); MONO % 6.3 % (0.0-5.0); NEUTROPHILS # 4.1 10^3/uL (1.5-8.5); NEUTROPHILS % 66.3 % (36.0-66.0); PLATELET COUNT, AUTOMATED 134 10^3/uL (150-450); RED BLOOD COUNT 4.44 10^6/uL (4.00-5.40); WHITE BLOOD COUNT 6.2 10^3/uL (4.0-10.0)
[2019-04-01 16:45] LABS: ALBUMIN 3.7 GM/DL (3.2-5.2); ALT/SGPT 225 U/L (12-78); BILIRUBIN,DIRECT 0.4 MG/DL (0.0-0.2); BILIRUBIN,TOTAL 0.7 MG/DL (0.2-1.0); BLOOD UREA NITROGEN 9 MG/DL (7-18); CALCIUM LEVEL 8.8 MG/DL (8.5-10.1); CARBON DIOXIDE LEVEL 29 MEQ/L (21-32); CHLORIDE LEVEL 106 MEQ/L (98-107); CREATININE FOR GFR 0.87 MG/DL (0.55-1.30); GLOMERULAR FILTRATION RATE > 60.0 (>60); GLUCOSE, FASTING 81 MG/DL (70-100); LIPASE 168 U/L (73-393); POTASSIUM SERUM 3.7 MEQ/L (3.5-5.1); SODIUM LEVEL 141 MEQ/L (136-145); TOTAL PROTEIN 7.5 GM/DL (6.4-8.2)
[2019-04-01 17:18] VITALS: BP 107/64
[2019-04-01] MEDS ORDERED: HYDR-3713 PO (18:05)
== END 2019-04-01 18:05 | disposition home or self-care (01) ==
LOC: M ED 15:14
DX: K80.50 Calculus of bile duct without cholangitis or cholecystitis without obstruction (principal); R11.2 Nausea with vomiting, unspecified
CPT/HCPCS: 36415; 80048; 80076; 83690; 84702; 85025; 96361; 96374; 96375; 99284; J1885; J2270; J2405

== ENCOUNTER 2019-04-02 12:06 | Inpatient (IN) | payer OTHER ==
[~2019-04-02] VITALS: Ht 175.3 cm; Wt 81.4 kg
[2019-04-02 12:29] VITALS: BP 123/64
[2019-04-02 13:27] LABS: BASO # 0.1 10^3/uL (0.0-0.2); BASO % 0.6 % (0.0-1.0); EOS # 0.1 10^3/uL (0.0-0.5); EOS % 1.4 % (0.0-3.0); HEMATOCRIT 40.9 % (36.0-47.0); HEMOGLOBIN 13.3 g/dl (12.0-15.5); LYMPH # 1.5 10^3/uL (1.5-5.0); MEAN CORPUSCULAR HEMOGLOBIN 28.9 pg (27.0-33.0); MEAN CORPUSCULAR HGB CONC 32.5 g/dl (32.0-36.5); MEAN CORPUSCULAR VOLUME 88.9 fl (80.0-96.0); MONO # 0.5 10^3/uL (0.0-0.8); MONO % 6.4 % (0.0-5.0); NEUTROPHILS # 6.1 10^3/uL (1.5-8.5); NEUTROPHILS % 73.4 % (36.0-66.0); PLATELET COUNT, AUTOMATED 153 10^3/uL (150-450); WHITE BLOOD COUNT 8.3 10^3/uL (4.0-10.0)
[2019-04-02] MEDS: LR 1,000 ML IV SCH ×2 (14:03→21:07)
[2019-04-02 14:07] LABS: ALBUMIN 4.1 GM/DL (3.2-5.2); ALT/SGPT 270 U/L (12-78); BILIRUBIN,TOTAL 1.1 MG/DL (0.2-1.0); BLOOD UREA NITROGEN 9 MG/DL (7-18); CARBON DIOXIDE LEVEL 31 MEQ/L (21-32); CHLORIDE LEVEL 105 MEQ/L (98-107); CREATININE FOR GFR 0.93 MG/DL (0.55-1.30); GLOMERULAR FILTRATION RATE > 60.0 (>60); GLUCOSE, FASTING 88 MG/DL (70-100); POTASSIUM SERUM 3.8 MEQ/L (3.5-5.1); SODIUM LEVEL 140 MEQ/L (136-145); TOTAL PROTEIN 8.1 GM/DL (6.4-8.2)
--- NOTE | 2019-04-02 17:57 | REP ---
MRCP: MRCP exam was accomplished utilizing multiple heavily weighted T2 sequences in the axial and coronal planes with MIP reconstruction images. Correlation made with ultrasound 03/31/2019. The gallbladder demonstrates multiple subcentimeter stones in dependant portion. Gallbladder is mild to moderately distended with no wall thickening or wall edema. There is no intrahepatic biliary dilatation. Common bile duct was not dilated. Maximum diameter is approximately 4 mm. However there does appear to be a 4 mm stone in the distal end of the common bile duct. Pancreatic duct is not dilated. The visualized liver, spleen, adrenals, pancreas, and kidneys are otherwise grossly unremarkable. No free fluid is seen in the visualized abdomen. IMPRESSION: Multiple subcentimeter gallstones in the dependant portion of the gallbladder. No gallbladder wall thickening or edema. No intrahepatic or extrahepatic biliary dilatation, common bile duct measures 4 mm in maximum diameter, however, there is evidence of a 4 mm stone in the distal end of the common bile duct. Electronically Signed by Boo Irene MD 04/04/2019 10:23 A
[2019-04-02 18:00] VITALS: BP 120/68
[2019-04-02] MEDS: MORPHINE 2 MG/ML 1ML VIAL (J2270) IV PRN (19:16)
[2019-04-02] MEDS: ONDANSETRON 4MG/2ML VIAL (J2405) IV PRN (19:19)
[2019-04-02] MEDS: ceFAZolin SOD 1 GM in D5W MINI-BAG PLUS 50 ML IV SCH (19:31)
[2019-04-02] MEDS: KETOROLAC 30 MG/ML VIAL (J1885) IV PRN (20:02)
[2019-04-02 22:00] VITALS: BP 122/78
[2019-04-03] VITALS (11 sets, daily range): BP systolic 119–134; BP diastolic 66–77
[2019-04-03] MEDS: ceFAZolin SOD 1 GM in D5W MINI-BAG PLUS 50 ML IV SCH ×3 (03:04→19:00)
[2019-04-03] MEDS: ONDANSETRON 4MG/2ML VIAL (J2405) IV PRN (05:43)
[2019-04-03] MEDS: KETOROLAC 30 MG/ML VIAL (J1885) IV PRN ×2 (05:43→14:49)
[2019-04-03] MEDS: LR 1,000 ML IV SCH ×3 (06:30→15:44)
[2019-04-03 06:40] LABS: ALBUMIN 3.2 GM/DL (3.2-5.2); ALT/SGPT 323 U/L (12-78); BILIRUBIN,TOTAL 0.7 MG/DL (0.2-1.0); BLOOD UREA NITROGEN 9 MG/DL (7-18); CALCIUM LEVEL 8.5 MG/DL (8.5-10.1); CARBON DIOXIDE LEVEL 29 MEQ/L (21-32); CHLORIDE LEVEL 108 MEQ/L (98-107); CREATININE FOR GFR 0.88 MG/DL (0.55-1.30); GLOMERULAR FILTRATION RATE > 60.0 (>60); GLUCOSE, FASTING 80 MG/DL (70-100); POTASSIUM SERUM 3.5 MEQ/L (3.5-5.1); SODIUM LEVEL 142 MEQ/L (136-145); TOTAL PROTEIN 6.7 GM/DL (6.4-8.2)
--- NOTE | 2019-04-03 08:29 | HPE ---
DATE OF ADMISSION: 04/02/2019 ADMITTING DIAGNOSIS: Cholelithiasis and possible choledocholithiasis. HISTORY: Patient is a 33-year-old woman who had delivered her most recent child on February 27. She had been found on an ultrasound during her to have cholelithiasis. The ultrasound had been done for some left-sided abdominal pain and she had no further episodes of discomfort during her . On March 16 she developed some severe right upper quadrant pain which radiated around to her back. She was seen in the emergency department and a repeat ultrasound again confirmed cholelithiasis but no signs of acute cholecystitis were identified. She did have some very slight elevations of her liver enzymes at that time, though her total bilirubin was normal. I saw her in consultation in the emergency department on that occasion. She followed up in the office on March 28 and at that point reported that she was not having any recurrence of her pain and elected not to have any surgery for her gallstones. On March 30 she developed recurrent right upper quadrant pain. She was seen in the emergency department early on the . She had repeat laboratory studies that showed elevations of her transaminases that remained mild, AST of 91, ALT of 58 and alkaline phosphatase 148. She received a dose of morphine and some Zofran and felt better and was discharged home. She did fairly well during the course of the day on the but then on the again developed severe upper abdominal pain and returned to the emergency department for reevaluation. On this occasion her repeat liver function tests showed an AST of 266, ALT of 225 and alkaline phosphatase of 266. Total bilirubin was 0.7 with a direct of 0.4. She did not have a repeat ultrasound on this visit. She again felt somewhat better after some morphine and fluids. She was discharged home. She contacted my office on the morning of the and was brought in for follow-up visit. She reports that she had been feeling okay last evening but had a small prepackaged cup of mandarin oranges this morning shortly before coming to the office and noted the onset of severe right upper quadrant pain again. She has had some vomiting this morning. MEDICATIONS: The patient's only current medication is an as-needed Conway for pain. ALLERGIES: The patient denies any known drug allergies. MEDICAL HISTORY: The patient has no other active medical issues. PAST SURGICAL HISTORY: Patient has had three sections most recently on February 27. SOCIAL HISTORY: The patient has three children. She is bottle feeding the baby. She denies any tobacco use or significant alcohol intake recently. FAMILY HISTORY: Noncontributory. REVIEW OF SYSTEMS: Reveals no history of heart or lung issues. She has no history of diabetes or other endocrine issues. She has no history of DVT or pulmonary embolus. She denies any history of jaundice, hepatitis or pancreatitis. She has no urinary symptoms. PHYSICAL EXAMINATION: Reveals a pleasant young woman clearly in discomfort holding her right upper quadrant. She is alert and oriented. Skin: Warm and dry. Sclerae are anicteric. Neck is supple without mass. Heart exam shows a regular rate and rhythm. The lungs are clear to auscultation. The abdomen is flat. She has bowel sounds present. Palpation reveals some mild to moderate direct tenderness in her right subcostal area medially. No masses appreciated. The lower abdomen is benign. Extremities: Show palpable radial and pedal pulses. IMPRESSION: Cholelithiasis with recurrent biliary colic but possible choledocholithiasis based on her elevated liver function tests. PLAN: I discussed with the patient that I felt the best approach would be to admit her to the hospital. I think it is quite likely that she has choledocholithiasis based on her elevated liver function tests in the emergency department over the weekend. She does report that she has noted her urine being darker today. I have recommended admission with some new lab work. She will be kept nothing by mouth and will receive IV maintenance fluid. I will order an MRCP today to assess for common bile duct stones. If the MRCP is negative for common duct stones, then I will and her onto the schedule tomorrow for cholecystectomy. If the MRI confirms cholelithiasis, then I will need to consult gastroenterology for possible ERCP. The patient was counseled regarding all of these matters and is agreeable with admission.
[2019-04-03] MEDS: MORPHINE 2 MG/ML 1ML VIAL (J2270) IV PRN (10:42)
[2019-04-03] MEDS ORDERED: ONDANSETRON 4MG/2ML VIAL (J2405) IV ONE (10:45)
[2019-04-03] MEDS ORDERED: fentaNYL 100 MCG/2 ML INJECTION (J3010) As Ordered ONE (16:31)
[2019-04-03] MEDS ORDERED: ROCURONIUM BROMIDE 50 MG/5 ML VIAL As Ordered ONE (16:32)
[2019-04-03] MEDS ORDERED: MIDAZOLAM INJ 2 MG/2 ML VIAL (J2250) As Ordered ONE (16:32)
[2019-04-03] MEDS ORDERED: LIDOCAINE 2% INJ 100 MG/5 ML SDV (FOR ANES.) As Ordered ONE (16:32)
[2019-04-03] MEDS ORDERED: PROPOFOL 200 MG/20 ML VIAL As Ordered ONE (16:32)
[2019-04-03] MEDS ORDERED: dexameTHASONE 4 MG/ML 1ML VIAL (J1100) As Ordered ONE (16:32)
[2019-04-03] MEDS ORDERED: ONDANSETRON 4MG/2ML VIAL (J2405) As Ordered ONE (16:32)
[2019-04-03] MEDS: ISOVUE-300 61% 50ML VIAL (Q9967) As Ordered ONE ×2 (17:45→17:46)
[2019-04-03] MEDS ORDERED: NEOSTIGMINE 10 MG/10 ML VIAL (J2710) As Ordered ONE (17:46)
[2019-04-03] MEDS ORDERED: GLYCOPYRROLATE INJ 0.2 MG/ML 2 ML VIAL As Ordered ONE (17:46)
--- NOTE | 2019-04-03 18:29 | ROOR ---
Patient Name: Karley Rogers Procedure Date: 04/03/2019 3:55 PM Date of : 1985 Age: 33 Room: Main OR Gender: Female Note Status: Finalized Procedure: ERCP Indications: Common bile duct stone(s), Abdominal pain of suspected biliary or pancreatic origin Providers: Aidan ROMERO MD Referring MD: 2. Inpatient 2. Inpatient Requesting Provider: Medicines: General Anesthesia Complications: No immediate complications. Procedure: Pre-Anesthesia Assessment: - The heart rate, respiratory rate, oxygen saturations, blood pressure, adequacy of pulmonary ventilation, and response to care were monitored throughout the procedure. The Duodenoscope was introduced through the mouth, and advanced to the duodenum and used to inject contrast into the bile duct and ventral pancreatic duct. The ERCP was accomplished without difficulty. The patient tolerated the procedure well. Findings: The welfare centre manager film was normal. The scope was advanced to a normal major papilla in the descending duodenum. Examination of the pharynx, larynx and associated structures, and upper GI tract was normal. The major papilla was edematous. A wire was passed into the biliary tree. The bile duct was then deeply cannulated over the guidewire. Contrast was injected. I personally interpreted the bile duct images. Ductal flow of contrast was adequate. Image quality was adequate. Choledocholithiasis was found in a nondilated duct. The lower third of the main bile duct contained filling defect(s) thought to be sludge and a possible tiny stone/debris. A 6 mm biliary sphincterotomy was made with a traction (standard) sphincterotome using ERBE electrocautery. There was no post-sphincterotomy bleeding. The biliary tree was swept with an 8 mm balloon starting at the bifurcation. Debris was swept from the duct. The ventral pancreatic duct was cannulated. Contrast was injected. The ventral pancreatic duct appears normal. A wire was passed into the ventral pancreatic duct. One 4 Fr by 3 cm stent with a 3/4 internal pigtail was placed into the ventral pancreatic duct. Clear fluid flowed through the stent. The stent was in good position. Impression: - The major papilla appeared edematous. - Choledocholithiasis/small debris was found. - A biliary sphincterotomy was performed. - The biliary tree was swept and debris was found.Complete removal was accomplished by balloon extraction. - One stent was placed into the ventral pancreatic duct. Recommendation: - Observe patient's clinical course. - Return patient to hospital [facility] for ongoing care. - Surgical consultation for consideration of cholecystectomy. - Perform a flat plate abdominal x-ray in 2 weeks. (to assure spontaneous passage of pancreatic stent). Aidan Romero MD Aidan ROMERO MD 04/03/2019 6:29:06 PM Electronically signed by Aidan ROMERO MD Number of Addenda: 0 Note Initiated On: 04/03/2019 3:55 PM Estimated Blood Loss: Estimated blood loss: none.
[2019-04-03] MEDS ORDERED: fentaNYL 100 MCG/2 ML INJECTION (J3010) IV PRN (18:45)
[2019-04-03] MEDS ORDERED: LR 1,000 ML IV SCH (18:45)
[2019-04-03] MEDS ORDERED: PERCOCET 5MG/325MG TAB PO PRN (18:45)
[2019-04-03] MEDS ORDERED: ONDANSETRON 4MG/2ML VIAL (J2405) IV PRN (18:45)
[2019-04-03] MEDS ORDERED: ceFAZolin 1GM INJ (J0690 PER 500MG) As Ordered ONE (18:52)
[2019-04-04 00:30] VITALS: BP 122/75
[2019-04-04] MEDS: LR 1,000 ML IV SCH ×2 (01:20→11:39)
[2019-04-04 02:00] VITALS: BP 120/74
[2019-04-04] MEDS: ceFAZolin SOD 1 GM in D5W MINI-BAG PLUS 50 ML IV SCH ×2 (02:26→10:37)
[2019-04-04 06:00] VITALS: BP 116/72
[2019-04-04 06:50] LABS: ALBUMIN 3.1 GM/DL (3.2-5.2); ALT/SGPT 187 U/L (12-78); BILIRUBIN,TOTAL 0.6 MG/DL (0.2-1.0); BLOOD UREA NITROGEN 7 MG/DL (7-18); CALCIUM LEVEL 8.4 MG/DL (8.5-10.1); CARBON DIOXIDE LEVEL 25 MEQ/L (21-32); CHLORIDE LEVEL 107 MEQ/L (98-107); CREATININE FOR GFR 0.74 MG/DL (0.55-1.30); GLOMERULAR FILTRATION RATE > 60.0 (>60); GLUCOSE, FASTING 86 MG/DL (70-100); POTASSIUM SERUM 3.7 MEQ/L (3.5-5.1); SODIUM LEVEL 141 MEQ/L (136-145); TOTAL PROTEIN 6.5 GM/DL (6.4-8.2)
--- NOTE | 2019-04-04 07:05 | IPN ---
DATE: 04/03/2019 HISTORY: The patient was admitted yesterday with persistent upper abdominal pain and known gallstones. She was found to have elevated liver function tests and an MRCP suggested a distal common bile duct stone. She is just recently returned to the floor from an ERCP by Dr. Romero. He reported that he removed some sludge or debris from the distal common bile duct and performed a papillotomy with placement of a temporary pancreatic duct stent. The patient is alert and appears fairly comfortable. Vital signs show that she has been afebrile since admission. Her pulse is in the 70s and 80s. Blood pressure is good and room air oxygen saturation is normal. Her urine output has been excellent. PHYSICAL EXAMINATION: The patient is alert and appears oriented. The abdomen is soft and without significant tenderness currently. Laboratory studies this morning showed persistent elevations of her AST, ALT and alk phos to 344, 323 and 373 respectively. IMPRESSION: The patient has now undergone ERCP for distal common bile duct debris. She appears to be doing well at this point. PLAN: We will check her LFTs in the morning. If these show improvement, we can advance her diet and determine the timing of her cholecystectomy. JOSE
--- NOTE | 2019-04-04 08:48 | REP ---
ERCP: 16 views. History: ERCP procedural imaging. 4 minutes 5 seconds of fluoroscopy time is reported. Findings: A sequence of 16 last image hold fluoroscopically obtained spot radiographs document cannulation and contrast injection in the common bile duct. Electronically Signed by José Miguel Moon MD 04/04/2019 05:36 P
[2019-04-04 10:00] VITALS: BP 117/72
[2019-04-04 14:00] VITALS: BP 109/70
--- NOTE | 2019-04-06 22:10 | IPN ---
DATE: 04/04/2019 HISTORY: The patient was admitted with abdominal pain and elevated liver function tests with known gallstones. A Magnetic Resonance Imaging (MRI) suggested a distal common bile duct stone and she is now postop day #1 from an ERCP by Dr. Romero, He identified some sludge or debris in the distal common bile duct and she underwent a papillotomy with placement of a temporary pancreatic duct stent. She has done well since the procedure with very little abdominal discomfort and no nausea. She has been tolerating liquids well. VITAL SIGNS: Show that she has been afebrile. Her pulse is in the low 80s and her blood pressure is normal. Intake and output shows that yesterday she had 2800 in with 1200 out. She had 900 mL of urine output earlier this morning and has been taking liquids well. PHYSICAL EXAMINATION: The patient is alert and oriented. Heart exam shows a regular rate and rhythm. The abdomen is flat. She has active bowel sounds. The abdomen is soft and she has no significant tenderness today. Laboratory studies today show normal electrolytes, BUN, creatinine and glucose. Her liver function tests show that her AST, ALT and alkaline phosphatase are all reduced significantly from yesterday. Her total bilirubin is normal at 0.6. IMPRESSION: The patient is doing well following a papillotomy for common bile duct debris with obstruction. PLAN: The patient and I discussed the option of staying in the hospital and having her cholecystectomy before discharge or coming back in the near future to have a cholecystectomy. She was advised that the ERCP should be somewhat protective even if she passes another small stone, but that we cannot be certain she will not have another attack if she goes home before her gallbladder is removed. After some discussion, we agreed that she will be discharged today so she can go home and see her children. We will schedule her for an outpatient ambulatory laparoscopic cholecystectomy in the near future. She understands to return as needed for any recurrence of her pain. She was advised to follow a low-fat diet in the interim.
== END 2019-04-04 17:00 | disposition home or self-care (01) ==
LOC: M MSPAV 12:21
PROVIDERS: ADMIT Surgery; ATTEND Surgery
PROC: 0F7D8DZ Dilation of Pancreatic Duct with Intraluminal Device, Via Natural or Artificial Opening Endoscopic (ICD-10-PCS; 2019-04-03)
PROC: 0FC98ZZ Extirpation of Matter from Common Bile Duct, Via Natural or Artificial Opening Endoscopic (ICD-10-PCS; principal; 2019-04-03 14:44)
DX: K80.50 Calculus of bile duct without cholangitis or cholecystitis without obstruction (principal)

== ENCOUNTER 2019-04-12 10:43 | Day surgery (SDC) | payer OTHER ==
[~2019-04-12] VITALS: Ht 175.3 cm; Wt 82.5 kg
[~2019-04-12 10:43] MED LIST changes: +ACETAMINOPHEN 1000MG 100ML IV BTL (OFIRMEV) (J0131 PER 10MG) As Ordered ONE; +KETOROLAC 60 MG/2 ML VIAL (J1885) As Ordered ONE; +LIDOCAINE 1% MDV 20ML VIAL SQ PRN; +LIDOCAINE 2% INJ 100 MG/5 ML SDV (FOR ANES.) As Ordered ONE; +LR 1,000 ML IV ONE; +MIDAZOLAM INJ 2 MG/2 ML VIAL (J2250) As Ordered ONE; +ONDANSETRON 4MG/2ML VIAL (J2405) As Ordered ONE; +PROPOFOL 200 MG/20 ML VIAL As Ordered ONE; +ROCURONIUM BROMIDE 50 MG/5 ML VIAL As Ordered ONE; +SUGAMMADEX SODIUM 500 MG/5 ML VIAL (BRIDION) As Ordered ONE; +dexameTHASONE 4 MG/ML 1ML VIAL (J1100) As Ordered ONE; +fentaNYL 100 MCG/2 ML INJECTION (J3010) As Ordered ONE
[2019-04-12] MEDS ORDERED: BUPIVACAINE HCL 0.25% 30 ML VIAL As Ordered ONE (13:26)
[2019-04-12] MEDS ORDERED: ROCURONIUM BROMIDE 50 MG/5 ML VIAL As Ordered ONE (15:03)
[2019-04-12] MEDS ORDERED: fentaNYL 100 MCG/2 ML INJECTION (J3010) As Ordered ONE (15:04)
[2019-04-12] MEDS ORDERED: NORC1TAB7 PO (15:43)
[2019-04-12] MEDS ORDERED: oxyCODONE 5MG TAB PO PRN (16:00)
[2019-04-12] MEDS ORDERED: MEPERIDINE INJ 25 MG/ML VIAL (J2175) IV PRN (16:00)
[2019-04-12] MEDS ORDERED: fentaNYL 100 MCG/2 ML INJECTION (J3010) IV PRN (16:00)
[2019-04-12] MEDS ORDERED: LR 1,000 ML IV SCH (16:00)
[2019-04-12] MEDS ORDERED: ONDANSETRON 4MG/2ML VIAL (J2405) IV PRN (16:00)
[2019-04-12] MEDS ORDERED: METOCLOPRAMIDE INJ 10MG/2ML VIAL (J2765) IV PRN (16:00)
[2019-04-12] MEDS ORDERED: ACETAMINOPHEN TAB 650MG DOSE (2X325MG) PO PRN (17:01)
[2019-04-12] MEDS ORDERED: IBUPROFEN 600 MG TAB PO PRN (17:01)
[2019-04-12] MEDS ORDERED: NORCO, ANEXSIA 5/325MG TABLET (HYDROcodone/ACETAMINOPHEN) PO PRN (17:01)
[2019-04-12 17:55] VITALS: BP 120/69
--- NOTE | 2019-04-16 16:07 | RO ---
DATE OF PROCEDURE: 04/12/2019 PREOPERATIVE DIAGNOSIS: Cholelithiasis with recent choledocholithiasis. POSTOPERATIVE DIAGNOSIS: Cholelithiasis with recent choledocholithiasis. PROCEDURE PERFORMED: Laparoscopic cholecystectomy. SURGEON: Dr. Whatley ANESTHESIA: General. INDICATIONS FOR PROCEDURE: The patient is a 33-year-old woman who was recently seen for epigastric pain and mild liver function test elevations. Ultrasound showed cholelithiasis. With persistent pain and liver function test (LFT) elevations an magnetic resonance cholangiopancreatography (MRCP) showed evidence for a distal common bile duct stone. She had an endoscopic retrograde cholangiopancreatography (ERCP) approximately 7-10 days ago. She was discharged from the hospital the following day and returns now for elective cholecystectomy. OPERATIVE PROCEDURE: The patient was brought to the operating room and placed on the table in a supine position. The patient was placed under general endotracheal anesthesia. The patient's abdomen was prepped and draped in a sterile fashion. 0.25% Marcaine was infiltrated at each of the trocar sites as needed. A short supraumbilical midline incision was made approximately 5 cm above the umbilicus. This was deepened to the fascia. A Veress needle was inserted and after positive hanging drop test the abdomen was insufflated with carbon dioxide gas. After the abdomen was insufflated, an 11 mm port was placed over a 5 mm scope and this was advanced through the abdominal wall without difficulty. Initial examination showed a normal appearing liver. Only a minimal area of the fundus was visible for the gallbladder. The stomach appeared normal and visualized portions of the small and large bowel appeared normal. The patient was tilted to a reverse Trendelenburg position and rolled to the left. Two 5 mm ports were placed in the right upper quadrant and a third 5 mm port was placed in the left upper quadrant. The gallbladder was grasped and elevated. The gallbladder was fairly small and only partially filled. Dissection was done at the gallbladder neck. The peritoneum was scored on all sides. Dissection through the pericholecystic tissues proceeded carefully. The cholecystic artery was identified and this was doubly clipped with hemoclips and divided. The cystic duct was then clearly identified and was also dissected free circumferentially. This was doubly clipped with hemoclips and divided. The gallbladder was then dissected free from the gallbladder bed using the hook cautery. The gallbladder was not perforated in the course of dissection. The gallbladder was placed an Endopouch. The right upper quadrant was irrigated and inspected and there was no evidence of bleeding or bile leak. The patient was returned to a flat position. The abdomen was deflated and the trocars were removed. The gallbladder was recovered through the supraumbilical site. The fascia at the supraumbilical site was closed with interrupted simple sutures of #2-0 Vicryl. The skin incisions were all closed with buried #4-0 Vicryl and Steri-Strips. Additional local anesthesia was infiltrated along the midline incision. The patient tolerated the procedure well without apparent complication. She was awakened in the operating room, extubated and moved to the recovery room in stable condition. JOSE
== END 2019-04-12 18:00 | disposition home or self-care (01) ==
LOC: M SDC 10:43
PROVIDERS: ATTEND Surgery
DX: K80.10 Calculus of gallbladder with chronic cholecystitis without obstruction (principal)
CPT/HCPCS: 47562; 81025; 88304; J0131; J1100; J1885; J2250; J2405; J3010

== ENCOUNTER → 2019-04-19 | Outpatient (CLI) | payer OTHER ==
[~2019-04-19] MED LIST changes: -ACETAMINOPHEN 1000MG 100ML IV BTL (OFIRMEV) (J0131 PER 10MG) As Ordered ONE; -KETOROLAC 60 MG/2 ML VIAL (J1885) As Ordered ONE; -LIDOCAINE 1% MDV 20ML VIAL SQ PRN; -LIDOCAINE 2% INJ 100 MG/5 ML SDV (FOR ANES.) As Ordered ONE; -LR 1,000 ML IV ONE; -MIDAZOLAM INJ 2 MG/2 ML VIAL (J2250) As Ordered ONE; -ONDANSETRON 4MG/2ML VIAL (J2405) As Ordered ONE; -PROPOFOL 200 MG/20 ML VIAL As Ordered ONE; -ROCURONIUM BROMIDE 50 MG/5 ML VIAL As Ordered ONE; -SUGAMMADEX SODIUM 500 MG/5 ML VIAL (BRIDION) As Ordered ONE; -dexameTHASONE 4 MG/ML 1ML VIAL (J1100) As Ordered ONE; -fentaNYL 100 MCG/2 ML INJECTION (J3010) As Ordered ONE
--- NOTE | 2019-04-19 10:46 | REP ---
Clinical: Foreign body. Technique: Two supine views of the abdomen and pelvis. Findings: The bowel gas pattern is nonspecific and no obvious foreign bodies identified. Surgical clips in the right upper quadrant consistent with prior cholecystectomy. No bowel obstruction. No perforation. No organomegaly. Skeletal structures intact. No abnormal calcifications. Impression: No foreign body identified. Electronically Signed by Ortega Sweet MD 04/19/2019 10:37 A
== END ==
LOC: M RAD 09:56
PROVIDERS: ATTEND Internal Medicine Gastroenterology
DX: T18.3XXA Foreign body in small intestine, initial encounter (principal); X58.XXXA Exposure to other specified factors, initial encounter

== ENCOUNTER → 2020-05-22 | Outpatient (REF) | payer OTHER ==
[~2020-05-22] MED LIST changes: +CYCL-707 PO; -CYCL10TA PO
[2020-05-23 12:11] LABS: CHLAMYDIA DNA AMPLIFICATION NEGATIVE (NEGATIVE); GC DNA AMPLIFICATION NEGATIVE (NEGATIVE)
== END ==
LOC: M SFHCWAGY 09:39
PROVIDERS: ATTEND Advanced Practice Midwife
DX: Z01.419 Encounter for gynecological examination (general) (routine) without abnormal findings (principal); Z12.4 Encounter for screening for malignant neoplasm of cervix; Z11.3 Encounter for screening for infections with a predominantly sexual mode of transmission

== ENCOUNTER → 2020-11-14 | Outpatient (REF) | payer OTHER ==
[2020-11-14 15:01] LABS: GC DNA AMPLIFICATION NEGATIVE (NEGATIVE)
== END ==
LOC: M PLALAB 09:34
PROVIDERS: ATTEND Obstetrics & Gynecology
DX: N89.8 Other specified noninflammatory disorders of vagina (principal)

== ENCOUNTER 2021-04-21 11:08 | Emergency (ER) | payer OTHER ==
[~2021-04-21] VITALS: Ht 175.3 cm; Wt 81.8 kg
[2021-04-21 11:09] VITALS: BP 115/72
[2021-04-21] MEDS ORDERED: ETON1VAG (11:29)
[2021-04-21] MEDS ORDERED: TESS100C PO (12:58)
[2021-04-21] MEDS ORDERED: PROAAER10 INH (12:58)
== END 2021-04-21 13:23 | disposition home or self-care (01) ==
LOC: M ED 11:08
DX: R52 Pain, unspecified (principal); U07.1 COVID-19; N73.9 Female pelvic inflammatory disease, unspecified; Z79.3 Long term (current) use of hormonal contraceptives

== ENCOUNTER → 2022-01-13 | Outpatient (REF) | payer OTHER ==
[~2022-01-13] MED LIST changes: +ETON1VAG; +OMEP-173 PO; -OMEP-218 PO; +PROAAER10 INH; +TESS100C PO
== END ==
LOC: M SFHCWAGY 15:16
PROVIDERS: ATTEND Advanced Practice Midwife
DX: N64.9 Disorder of breast, unspecified (principal); L91.8 Other hypertrophic disorders of the skin

== ENCOUNTER → 2022-02-18 | Outpatient (REF) | payer OTHER | LOC: M LAB REF 16:34 | PROVIDERS: ATTEND Physician Assistant | DX: J02.9 Acute pharyngitis, unspecified (principal) ==

== ENCOUNTER → 2023-01-30 | Outpatient (REF) | payer OTHER | LOC: M WUC 17:42 | PROVIDERS: ATTEND Registered Nurse | DX: N39.0 Urinary tract infection, site not specified (principal) ==

== ENCOUNTER → 2023-05-03 | Outpatient (CLI) | payer OTHER | LOC: M WUC 14:58 | PROVIDERS: ATTEND Physician Assistant | DX: S60.011A Contusion of right thumb without damage to nail, initial encounter (principal); W18.30XA Fall on same level, unspecified, initial encounter; Y92.009 Unspecified place in unspecified non-institutional (private) residence as the place of occurrence of the external cause ==

== ENCOUNTER → 2023-09-22 | Outpatient (REF) | payer OTHER | LOC: M LAB REF 12:28 | PROVIDERS: ATTEND Nurse Practitioner Family | DX: N73.9 Female pelvic inflammatory disease, unspecified (principal) ==

== ENCOUNTER → 2023-09-22 | Outpatient (REF) | payer OTHER ==
[2023-09-22 17:15] LABS: Trichomonas vaginalis (AMP) NOT DETECTED (NEGATIVE)
[2023-09-22 17:38] LABS: GC DNA AMPLIFICATION NEGATIVE (NEGATIVE)
== END ==
LOC: M SFHCWAGY 12:28
PROVIDERS: ATTEND Nurse Practitioner Family
DX: R35.0 Frequency of micturition (principal); N73.9 Female pelvic inflammatory disease, unspecified

== ENCOUNTER → 2023-10-10 | Outpatient (REF) | payer OTHER | LOC: M SFHCWAGY 16:51 | PROVIDERS: ATTEND Nurse Practitioner Family | DX: R10.2 Pelvic and perineal pain (principal) ==

== ENCOUNTER → 2023-12-27 | Outpatient (REF) | payer OTHER ==
[2023-12-29 13:17] LABS: HPV APTIMA Not Detected (Not Detected)
== END ==
LOC: M SFHCWAGY 15:09
PROVIDERS: ATTEND Nurse Practitioner Family
DX: Z12.4 Encounter for screening for malignant neoplasm of cervix (principal)

== ENCOUNTER → 2024-03-20 | Outpatient (REF) | payer OTHER | LOC: M LAB REF 11:33 | PROVIDERS: ATTEND Nurse Practitioner Family | DX: R30.0 Dysuria (principal) ==

== ENCOUNTER → 2024-11-29 | Outpatient (REF) | payer OTHER ==
[2024-11-29 14:12] LABS: Trichomonas vaginalis (AMP) NOT DETECTED (NEGATIVE)
[2024-11-29 14:36] LABS: GC DNA AMPLIFICATION NEGATIVE (NEGATIVE)
== END ==
LOC: M SMT 12:36
PROVIDERS: ATTEND Nurse Practitioner Family
DX: N73.9 Female pelvic inflammatory disease, unspecified (principal)